=== PATIENT | male | born 1945 | race Caucasian/White ===

== ENCOUNTER 2021-07-28 10:39 | Inpatient (IN) | payer MEDICARE, OTHER ==
[~2021-07-28] VITALS: Ht 177.8 cm; Wt 104.3 kg
[2021-07-28] MEDS ORDERED: SODIUM CHLORIDE 0.9% 500ML 500 ML IV ONE (11:00)
[2021-07-28 11:12] LABS: EOSINOPHILS # (AUTO) 0.5 (0.0-0.4); EOSINOPHILS % 2.6 % (0.0-6.0); LYMPHOCYTES # (AUTO) 5.4 (1.0-3.2); LYMPHOCYTES % 26.8 % (18.0-39.1); MEAN CORPUSCULAR HEMOGLOBIN 23.9 pg (28-32); MEAN CORPUSCULAR HGB CONC 27.8 g/dL (31-35); MEAN CORPUSCULAR VOLUME 85.8 fL (81-99); MONOCYTES # (AUTO) 1.5 (0.2-0.8); MONOCYTES % 7.2 % (4.4-11.3); NEUTROPHILS # (AUTO) 10.7 (2.1-6.9); NEUTROPHILS % 52.9 % (38.7-80.0); PLATELET COUNT 2852 x10e3/uL (140-360); RED BLOOD COUNT 2.26 x10e6/uL (4.3-5.7); RED CELL DISTRIBUTION WIDTH 20.2 % (11.7-14.4)
[2021-07-28 11:13] LABS: HEMOGLOBIN 5.4 g/dL (14.0-18.0)
[2021-07-28 11:14] LABS: HEMATOCRIT 19.4 % (38.2-49.6)
[2021-07-28 11:25] LABS: INR 1.17; PROTHROMBIN TIME 15.7 seconds (11.9-14.5)
[2021-07-28 11:26] LABS: PARTIAL THROMBOPLASTIN TIME 34.1 seconds (23.8-35.5)
[2021-07-28 11:39] LABS: ALBUMIN 3.7 g/dL (3.5-5.0); ANION GAP 15.9 mmol/L (8-16); CALCIUM 9.2 mg/dL (8.4-10.2); CREATININE, SERUM 1.7 mg/dL (0.72-1.25); MAGNESIUM 2.3 MG/DL (1.3-2.1); POTASSIUM 3.9 mmol/L (3.5-5.1)
[2021-07-28 11:47] LABS: CREATINE KINASE MB 0.7 ng/mL (0-5.0)
[2021-07-28] MEDS: SODIUM CHLORIDE 0.9% 1000ML 1,000 ML IV SCH (11:55)
[2021-07-28 12:09] LABS: FERRITIN 7.55 ng/mL (21.81-274.66)
[2021-07-28] MEDS ORDERED: SODIUM CHLORIDE 0.9% 250ML 250 ML ONE (13:17)
[2021-07-28 15:08] VITALS: BP 138/68
[2021-07-28] MEDS ORDERED: AMLODIPINE BESY10 MG PO (15:21)
[2021-07-28] MEDS ORDERED: METFORMIN HCL500 MG PO (15:21)
[2021-07-28] MEDS ORDERED: ASPIRIN81 MG PO (15:21)
[2021-07-28] MEDS ORDERED: HYDROCHLOROTHIA25 MG PO (15:21)
[2021-07-28] MEDS ORDERED: ATORVASTATIN CA20 MG PO (15:21)
[2021-07-28] MEDS ORDERED: LOSARTAN POTAS100 MG PO (15:21)
[2021-07-28] MEDS ORDERED: JANUVIA100 MG PO (15:21)
[2021-07-28] MEDS ORDERED: ADVAIR 250-501 EACH INH (15:21)
[2021-07-28 15:30] VITALS: BP 113/60
[2021-07-28] MEDS ORDERED: DEXTROSE 50% SYRINGE 50 ML IV PRN (15:30)
[2021-07-28 15:35] VITALS: BP 113/60
[2021-07-28 16:06] LABS: EOSINOPHILS % (MANUAL) 1 % (0-7); LYMPHOCYTES % (MANUAL) 12 % (19-48); MONOCYTES % (MANUAL) 14 % (3.4-9.0); NEUTROPHILS % (MANUAL) 67 % (40-74)
[2021-07-28 16:07] LABS: HYPOCHROMASIA MODERATE; MICROCYTOSIS SLIGHT; PLATELET ESTIMATE MARKEDLY INCREASED; PLATELET MORPHOLOGY COMMENT NORMAL; RBC MORPHOLOGY COMMENT ABNORMAL
[2021-07-28] MEDS: INSULIN LISPRO 100 UNIT/1 ML 3ML VIAL SQ SCH ×2 (16:30→20:16)
[2021-07-28] MEDS ORDERED: SALMETEROL/FLUTICASONE 250/50 INH SCH (19:00)
[2021-07-28] MEDS: ATORVASTATIN 40 MG TAB PO SCH (20:33)
[2021-07-28 20:38] VITALS: BP 111/59
[2021-07-28 20:41] VITALS: BP 111/59
[2021-07-28 23:54] VITALS: BP 133/71
[2021-07-29] VITALS (7 sets, daily range): BP systolic 119–146; BP diastolic 69–82
[2021-07-29 00:16] LABS: HEMATOCRIT 22.1 % (38.2-49.6)
[2021-07-29 00:22] LABS: HEMOGLOBIN 6.5 g/dL (14.0-18.0)
[2021-07-29] MEDS: SODIUM CHLORIDE 0.9% 1000ML 1,000 ML IV SCH (00:35)
[2021-07-29 00:36] LABS: CREATINE KINASE MB 0.6 ng/mL (0-5.0)
[2021-07-29 00:50] LABS: ANION GAP 13.7 mmol/L (8-16); CALCIUM 8.6 mg/dL (8.4-10.2); CREATININE, SERUM 1.59 mg/dL (0.72-1.25)
[2021-07-29 00:52] LABS: POTASSIUM 4.7 mmol/L (3.5-5.1)
[2021-07-29] MEDS ORDERED: SODIUM CHLORIDE 0.9% 250ML 250 ML IV ONE (01:00)
[2021-07-29] MEDS: INSULIN LISPRO 100 UNIT/1 ML 3ML VIAL SQ SCH ×4 (07:30→20:51)
[2021-07-29 08:43] LABS: BASOPHILS % 7.4 % (0.0-1.0); EOSINOPHILS # (AUTO) 0.6 (0.0-0.4); HEMATOCRIT 25.1 % (38.2-49.6); HEMOGLOBIN 7.7 g/dL (14.0-18.0); LYMPHOCYTES # (AUTO) 3.3 (1.0-3.2); LYMPHOCYTES % 23.6 % (18.0-39.1); MEAN CORPUSCULAR HEMOGLOBIN 26.5 pg (28-32); MEAN CORPUSCULAR HGB CONC 30.7 g/dL (31-35); MEAN CORPUSCULAR VOLUME 86.3 fL (81-99); MONOCYTES # (AUTO) 0.8 (0.2-0.8); MONOCYTES % 5.5 % (4.4-11.3); NEUTROPHILS # (AUTO) 7.5 (2.1-6.9); PLATELET COUNT 2315 x10e3/uL (140-360); RED BLOOD COUNT 2.91 x10e6/uL (4.3-5.7); RED CELL DISTRIBUTION WIDTH 18.7 % (11.7-14.4)
[2021-07-29] MEDS: AMLODIPINE BESYLATE 10 MG TAB PO SCH (08:45)
[2021-07-29 08:59] LABS: ALBUMIN 3.3 g/dL (3.5-5.0); ALBUMIN/GLOBULIN RATIO 1.1 (0.8-2.0); ANION GAP 12.9 mmol/L (8-16); CALCIUM 8.5 mg/dL (8.4-10.2); CREATININE, SERUM 1.54 mg/dL (0.72-1.25); POTASSIUM 3.9 mmol/L (3.5-5.1)
[2021-07-29] MEDS: HYDROXYUREA 500 MG CAPSULE PO SCH ×2 (09:00→17:30)
[2021-07-29 09:19] LABS: CREATINE KINASE MB 0.7 ng/mL (0-5.0)
[2021-07-29] MEDS ORDERED: PROPOFOL IV EMULSION 10 MG/ML 20 ML VIAL ONE (13:22)
[2021-07-29] MEDS ORDERED: MIDAZOLAM HCL 2 MG/2 ML VIAL ONE (14:15)
[2021-07-29] MEDS ORDERED: FENTANYL CITRATE/PF 100MCG/2 ML INJ ONE (14:15)
[2021-07-29 17:07] LABS: CREATINE KINASE MB 0.9 ng/mL (0-5.0)
[2021-07-29] MEDS: ATORVASTATIN 40 MG TAB PO SCH (20:49)
[2021-07-30] VITALS (8 sets, daily range): BP systolic 116–152; BP diastolic 64–81
[2021-07-30 05:27] LABS: BASOPHILS # (AUTO) 0.9 (0.0-0.1); BASOPHILS % 6.8 % (0.0-1.0); EOSINOPHILS # (AUTO) 0.6 (0.0-0.4); EOSINOPHILS % 4.3 % (0.0-6.0); HEMOGLOBIN 7.5 g/dL (14.0-18.0); LYMPHOCYTES # (AUTO) 2.7 (1.0-3.2); LYMPHOCYTES % 20.5 % (18.0-39.1); MEAN CORPUSCULAR HEMOGLOBIN 26.2 pg (28-32); MEAN CORPUSCULAR VOLUME 87.4 fL (81-99); MONOCYTES # (AUTO) 0.9 (0.2-0.8); MONOCYTES % 6.4 % (4.4-11.3); NEUTROPHILS # (AUTO) 7.6 (2.1-6.9); NEUTROPHILS % 56.7 % (38.7-80.0); PLATELET COUNT 2334 x10e3/uL (140-360); RED BLOOD COUNT 2.86 x10e6/uL (4.3-5.7); RED CELL DISTRIBUTION WIDTH 19.3 % (11.7-14.4)
[2021-07-30 05:57] LABS: ALBUMIN 3.2 g/dL (3.5-5.0); ANION GAP 14.1 mmol/L (8-16); CALCIUM 8.6 mg/dL (8.4-10.2); CREATININE, SERUM 1.57 mg/dL (0.72-1.25); POTASSIUM 4.1 mmol/L (3.5-5.1)
[2021-07-30] MEDS: INSULIN LISPRO 100 UNIT/1 ML 3ML VIAL SQ SCH ×4 (07:30→20:12)
[2021-07-30] MEDS: HYDROXYUREA 500 MG CAPSULE PO SCH ×2 (09:07→17:40)
[2021-07-30] MEDS: AMLODIPINE BESYLATE 10 MG TAB PO SCH (09:08)
[2021-07-30] MEDS ORDERED: ACETAMINOPHEN 325 MG TAB PO STA (11:36)
[2021-07-30] MEDS ORDERED: SODIUM CHLORIDE 0.9% 250ML 250 ML IV ONE (11:45)
[2021-07-30] MEDS ORDERED: DIPHENHYDRAMINE HCL INJ 50 MG/ML VIAL IV ONE (11:45)
[2021-07-30] MEDS ORDERED: IRON SUCROSE 100 MG in SODIUM CHLORIDE 0.9% 100 ML 100 ML IV SCH (13:00)
[2021-07-30] MEDS ORDERED: SODIUM CHLORIDE 0.9% 250ML 250 ML ONE (15:26)
[2021-07-30] MEDS: ATORVASTATIN 40 MG TAB PO SCH (20:11)
[2021-07-31] VITALS: BP 160/80
[2021-07-31 04:00] VITALS: BP 144/76
[2021-07-31 05:18] LABS: BASOPHILS # (AUTO) 0.9 (0.0-0.1); BASOPHILS % 7.4 % (0.0-1.0); EOSINOPHILS # (AUTO) 0.6 (0.0-0.4); EOSINOPHILS % 4.8 % (0.0-6.0); HEMATOCRIT 28.8 % (38.2-49.6); HEMOGLOBIN 8.8 g/dL (14.0-18.0); LYMPHOCYTES # (AUTO) 2.7 (1.0-3.2); LYMPHOCYTES % 21.6 % (18.0-39.1); MEAN CORPUSCULAR HEMOGLOBIN 26.8 pg (28-32); MEAN CORPUSCULAR HGB CONC 30.6 g/dL (31-35); MEAN CORPUSCULAR VOLUME 87.8 fL (81-99); MONOCYTES # (AUTO) 0.7 (0.2-0.8); MONOCYTES % 5.5 % (4.4-11.3); NEUTROPHILS # (AUTO) 7.1 (2.1-6.9); NEUTROPHILS % 57.1 % (38.7-80.0); PLATELET COUNT 2480 x10e3/uL (140-360); RED BLOOD COUNT 3.28 x10e6/uL (4.3-5.7)
[2021-07-31 05:32] LABS: INR 1.17; PROTHROMBIN TIME 15.7 seconds (11.9-14.5)
[2021-07-31 05:33] LABS: PARTIAL THROMBOPLASTIN TIME 40.4 seconds (23.8-35.5)
[2021-07-31 05:53] LABS: ALBUMIN 3.4 g/dL (3.5-5.0); CALCIUM 8.8 mg/dL (8.4-10.2); CREATININE, SERUM 1.48 mg/dL (0.72-1.25)
[2021-07-31] MEDS: INSULIN LISPRO 100 UNIT/1 ML 3ML VIAL SQ SCH (07:30)
[2021-07-31] MEDS ORDERED: PANTOPRAZOLE SOD 40 MG TABEC PO SCH (07:30)
[2021-07-31 08:26] VITALS: BP 144/76
[2021-07-31 08:31] LABS: EOSINOPHILS % (MANUAL) 7 % (0-7); LYMPHOCYTES % (MANUAL) 18 % (19-48); MONOCYTES % (MANUAL) 2 % (3.4-9.0); MYELOCYTES % (MANUAL) 1 % (0-0); NEUTROPHILS % (MANUAL) 72 % (40-74); PLATELET ESTIMATE MARKEDLY INCREASED
[2021-07-31 08:32] LABS: PLATELET MORPHOLOGY COMMENT FEW LARGE; RBC MORPHOLOGY COMMENT NORMAL
[2021-07-31] MEDS ORDERED: LIDOCAINE HCL 1% LOCAL INJ 20 ML VIAL ONE (09:05)
[2021-07-31] MEDS ORDERED: FENTANYL CITRATE/PF 100MCG/2 ML INJ ONE (09:06)
[2021-07-31] MEDS ORDERED: MIDAZOLAM HCL 2 MG/2 ML VIAL ONE (09:06)
[2021-07-31] MEDS: AMLODIPINE BESYLATE 10 MG TAB PO SCH (11:00)
[2021-07-31] MEDS: HYDROXYUREA 500 MG CAPSULE PO SCH (11:00)
[2021-07-31] MEDS ORDERED: PANTOPRAZOLE SO40 MG PO (11:25)
[2021-07-31] MEDS ORDERED: MIRALAX17 GM PO (11:26)
[2021-07-31] MEDS ORDERED: HYDROXYUREA500 MG PO (11:29)
== END 2021-07-31 11:55 | disposition home or self-care (01) | DRG 840 ==
LOC: ER 10:50 → ERHOLD 11:11 → MED/SURG2 11:58
PROVIDERS: ADMIT Internal Medicine; ATTEND Internal Medicine
PROC: 30233N1 Transfusion of Nonautologous Red Blood Cells into Peripheral Vein, Percutaneous Approach (ICD-10-PCS; principal; 2021-07-28)
PROC: 0DB68ZX Excision of Stomach, Via Natural or Artificial Opening Endoscopic, Diagnostic (ICD-10-PCS; 2021-07-29)
PROC: 0DB78ZX Excision of Stomach, Pylorus, Via Natural or Artificial Opening Endoscopic, Diagnostic (ICD-10-PCS; 2021-07-29)
PROC: 079T3ZX Drainage of Bone Marrow, Percutaneous Approach, Diagnostic (ICD-10-PCS; 2021-07-31)
DX: C92.10 Chronic myeloid leukemia, BCR/ABL-positive, not having achieved remission (principal); K29.71 Gastritis, unspecified, with bleeding; I13.0 Hypertensive heart and chronic kidney disease with heart failure and stage 1 through stage 4 chronic kidney disease, or unspecified chronic kidney disease; I50.42 Chronic combined systolic (congestive) and diastolic (congestive) heart failure; K29.70 Gastritis, unspecified, without bleeding; D69.6 Thrombocytopenia, unspecified; N18.30 Chronic kidney disease, stage 3 unspecified; D50.9 Iron deficiency anemia, unspecified; I25.10 Atherosclerotic heart disease of native coronary artery without angina pectoris; Z95.5 Presence of coronary angioplasty implant and graft; J42 Unspecified chronic bronchitis; K20.90 Esophagitis, unspecified without bleeding; E66.9 Obesity, unspecified; Z68.33 Body mass index [BMI] 33.0-33.9, adult; D75.839 Thrombocytosis, unspecified
CPT/HCPCS: 36415; 38222; 43239; 71045; 74470; 77012; 80048; 80053; 82550; 82553; 82607; 82728; 82746; 82948; 83540; 83735; 84466; 84484; 85014; 85018; 85025; 85045; 85610; 85730; 86850; 86900; 86920; 88305; 88312; 93005; 96372; 99284; J1200; J1756; J2001; J2250; J3010; J7030; J7040; J7050; P9016; U0002

== ENCOUNTER → 2021-11-01 | Outpatient (CLI) | payer MEDICARE, OTHER ==
[~2021-11-01] MED LIST: ADVAIR 250-501 EACH INH; AMLODIPINE BESY10 MG PO; ASPIRIN81 MG PO; ATORVASTATIN CA20 MG PO; FEROSUL325 MG PO; HYDROCHLOROTHIA25 MG PO; HYDROXYUREA500 MG PO; JANUVIA100 MG PO; LOSARTAN POTAS100 MG PO; METFORMIN HCL500 MG PO; MIRALAX17 GM PO; PANTOPRAZOLE SO40 MG PO
== END ==
LOC: RAD 12:33
PROVIDERS: ATTEND Internal Medicine
DX: J40 Bronchitis, not specified as acute or chronic (principal); I50.32 Chronic diastolic (congestive) heart failure
CPT/HCPCS: 71046